=== PATIENT | male | born 1965 | race Caucasian/White ===

== ENCOUNTER 2016-08-01 22:13 | Emergency (ER) | payer MEDICAID ==
[~2016-08-01] VITALS: Ht 180.3 cm; Wt 117.5 kg
[~2016-08-01 22:13] MED LIST: AMLO5TAB2 PO; ASPI-875 PO; ATOR80TA2 PO; BTR10SP2 NS; DIVA500T15 PO; HCT25T PO; LISI40TA PO; LNS30CCR; METO100T PO; ONDA8TAB6 PO; ORPH100T PO; POTA10IV PO; SUMA100T2 PO; TML.25OP OU; TRAV0.004S OU; VERA120T PO; [UNRECOGNIZED DRUG - CODE] PO
[2016-08-01] MEDS ORDERED: DOXA4TAB2 PO (22:48)
[2016-08-01] MEDS ORDERED: BENZ200C51 PO (22:48)
[2016-08-01] MEDS ORDERED: RANI150T11 PO (22:48)
[2016-08-01] MEDS ORDERED: POTA10CA43 PO (22:48)
[2016-08-01] MEDS ORDERED: MONT10TA24 PO (22:48)
[2016-08-01] MEDS ORDERED: TOPI50TA13 PO (22:48)
[2016-08-01] MEDS ORDERED: CODE1CAP20 PO (22:48)
[2016-08-01] MEDS ORDERED: OMEP40CA36 PO (22:48)
[2016-08-01] MEDS ORDERED: TOPI100T11 PO (22:48)
[2016-08-01] MEDS ORDERED: POLY255P PO (22:48)
[2016-08-01] MEDS ORDERED: PROM25TA14 PO (22:48)
[2016-08-01] MEDS ORDERED: LEVO50TA6 PO (22:48)
[2016-08-01 22:59] LABS: BASOPHILS % (AUTO) 0 % (0-10); EOSINOPHILS % (AUTO) 1 % (0-10); LYMPHOCYTES # (AUTO) 1.2 X 10^3 (1.0-4.0); LYMPHOCYTES % (AUTO) 33 % (12-44); MEAN CORPUSCULAR HEMOGLOBIN 31 PG (25-34); MEAN CORPUSCULAR HGB CONC 35 G/DL (32-36); MEAN CORPUSCULAR VOLUME 89 FL (80-99); MEAN PLATELET VOLUME 10.3 FL (7.4-10.4); MONOCYTES # (AUTO) 0.3 X 10^3 (0.0-1.0); MONOCYTES % (AUTO) 9 % (0-12); NEUTROPHILS % (AUTO) 57 % (42-75); PLATELET COUNT 191 10^3/uL (130-400); RED BLOOD COUNT 4.81 10^6/uL (4.35-5.85); RED CELL DISTRIBUTION WIDTH 12.7 % (10.0-14.5); WHITE BLOOD COUNT 3.5 10^3/uL (4.3-11.0)
[2016-08-01 23:19] LABS: ALANINE AMINOTRANSFERASE 16 U/L (0-55); ALBUMIN 4.3 G/DL (3.2-4.5); ANION GAP 10 MMOL/L (5-14); ASPARTATE AMINO TRANSFERASE 15 U/L (5-34); BILIRUBIN,TOTAL 0.3 MG/DL (0.1-1.0); BLOOD UREA NITROGEN 20 MG/DL (7-18); BUN/CREATININE RATIO 19; CALCIUM 9.1 MG/DL (8.5-10.1); CARBON DIOXIDE 20 MMOL/L (21-32); CHLORIDE 114 MMOL/L (98-107); CREATININE SERUM 1.06 MG/DL (0.60-1.30); GFR ESTIMATED > 60; GLUCOSE 113 MG/DL (70-105); LIPASE 46 U/L (8-78); POTASSIUM 3.7 MMOL/L (3.6-5.0); SODIUM 144 MMOL/L (135-145); TOTAL PROTEIN 7.1 G/DL (6.4-8.2)
[2016-08-01 23:33] LABS: BILIRUBIN,URINE NEGATIVE (NEGATIVE); KETONES,URINE 1+ (NEGATIVE); LEUKOCYTE ESTERASE ,URINE 1+ (NEGATIVE); NITRITE,URINE NEGATIVE (NEGATIVE); PH,URINE 6 (5-9); PROTEIN,URINE 2+ (NEGATIVE); UROBILINOGEN,URINE 4 MG/DL (NORMAL)
[2016-08-01 23:43] LABS: SQUAMOUS EPITHELIAL CELL,UR RARE /HPF; WBC,URINE RARE /HPF
[2016-08-01 23:44] LABS: CALCIUM OXALATE CRYSTALS,UR LARGE /LPF
[2016-08-01] MEDS ORDERED: ONDANSETRON 4 MG/2 ML (SDV) Z0FRAN IVP ONE (23:45)
[2016-08-01] MEDS ORDERED: fentaNYL INJECTION 100 MCG/2 ML AMP IVP ONE (23:45)
[2016-08-01 23:55] LABS: LIPASE 46 U/L (8-78); MAGNESIUM 2.5 MG/DL (1.8-2.4)
[2016-08-02] MEDS ORDERED: IOHEXOL 350 MG/ML 100 ML (OMNIPAQUE 350) VIAL IV ONE (00:45)
[2016-08-02] MEDS ORDERED: NS 100 ML (IVPB) BAG IV ONE (00:45)
[2016-08-02] MEDS ORDERED: KETOROLAC 30 MG/ML VIAL IVP ONE (02:00)
--- NOTE | 2016-08-02 02:30 | ED General ---
General Chief Complaint: Abdominal/GI Problems Stated Complaint: HEADACHE, N/V Nursing Triage Note: states abdominal pain with N/V/D and headache. states has diverticulitis Nursing Sepsis Screen: No Definite Risk Source of Information: Patient Exam Limitations: No Limitations History of Present Illness Time Seen by Provider: 22:36 Initial Comments This 51-year-old man presents to the emergency room with complaints of vomiting , headache, and abdominal pain that started yesterday. He had diarrhea 2-3 days ago which resolved. He has had some blood in his stools for a couple of days which he presumes is related to his hemorrhoids. He denies any fever but has had some chills. Last bowel movement was today and was normal. He has a history of diverticulitis. He has had colostomy and reversal 2 due to diverticulitis. He currently sees the [facility] in [place]. After workup for abdominal pain was nearly complete, he mentioned intermittent chest pain over the past week. Review of his chart notes a normal cardiac catheterization in 2007 and a negative stress test one year ago. Allergies and Home Medications Allergies Coded Allergies: acetaminophen (Verified Allergy, Unknown, 06/12/08) codeine (Verified Allergy, Unknown, 06/12/08) oxycodone (Verified Allergy, Unknown, 06/12/08) phenytoin (Verified Allergy, Unknown, 06/12/08) tramadol (Verified Allergy, Unknown, 08/01/16) Home Medications Aspirin 81 Mg Tablet.dr 81 MG PO DAILY (Reported) Atorvastatin Calcium 80 Mg Tablet 80 MG PO HS (Reported) Benzonatate 200 Mg Capsule 200 MG PO TID (Reported) Butalbit/Acetamin/Caff/Codeine 1 Each Capsule #20 1 CAP PO UD (Reported) Butorphanol Tartrate 10 Mg/Ml Can #1 1 SPRAY NS nasal spray (Reported) Divalproex Sodium 500 Mg Tab.sr.24h #2 1 EACH PO Q12H (Reported) Doxazosin Mesylate 4 Mg Tablet #60 1 TAB PO UD (Reported) Levothyroxine Sodium 50 Mcg Tablet #30 1 TAB PO UD (Reported) Lisinopril 40 Mg Tablet 40 MG PO DAILY (Reported) Metoprolol Tartrate 100 Mg Tablet 100 MG PO BID (Reported) Montelukast Sodium 10 Mg Tablet #30 1 TAB PO UD (Reported) Omeprazole 40 Mg Capsule.dr #30 1 CAP PO UD (Reported) Ondansetron Hcl 8 Mg Tablet 8 MG PO PRN (Reported) Polyethylene Glycol 3350 255 Gm Powder #527 1 CAP PO UD (Reported) Potassium Chloride 10 Meq Capsule.er #30 1 CAP PO UD (Reported) Promethazine HCl 25 Mg Tablet #20 1 TAB PO UD (Reported) Ranitidine HCl 150 Mg Tablet #30 1 TAB PO UD (Reported) Sumatriptan Succinate 100 Mg Tablet #1 0 PO PRN (Reported) 1 TAB AT ONSET OF MILLER; MAY REPEAT X 1 IN 2 HOURS Timolol 15 Ml Drops 15 ML OU HS (Reported) Topiramate 50 Mg Tablet #60 1 TAB PO UD (Reported) Topiramate 100 Mg Tablet #60 1 TAB PO UD (Reported) Travoprost 2.5 Ml Drops 0 OU HS (Reported) 1 DROP Constitutional: no symptoms reported EENTM: no symptoms reported Respiratory: no symptoms reported Cardiovascular: see HPI Gastrointestinal: see HPI Genitourinary: no symptoms reported Musculoskeletal: no symptoms reported Skin: no symptoms reported Psychiatric/Neurological: See HPI Hematologic/Lymphatic: No Symptoms Reported Past Bkwzawa-Gdqocl-Sfrtxn Hx Patient Social History Alcohol Use: Rarely Uses Recreational Drug Use: No Smoking Status: Current Someday Smoker Type Used: Cigarettes Recent Foreign Travel: No Contact w/Someone Who Travel: No Recent Infectious Disease Expo: No Recent Hopitalizations: No Physical Abuse Screen: No Sexual Abuse: No Immunizations Up To Date Date of Pneumonia Vaccine: Jan 23, 2012 Seasonal Allergies Seasonal Allergies: No Surgeries HX Surgeries: Yes (arm) Surgeries: Abdominal (colostomy and reversal 2, hernia), Gallbladder, Orthopedic (shoulder, thumb) Respiratory Hx Respiratory Disorders: No Cardiovascular Hx Cardiac Disorders: Yes Cardiac Disorders: Hypertension Neurological Hx Neurological Disorders: Yes Neurological Disorders: Headaches /Migraines Reproductive System Hx Reproductive Disorders: No Genitourinary Hx Genitourinary Disorders: No Gastrointestinal Hx Gastrointestinal Disorders: Yes (TRUJILLO) Gastrointestinal Disorders: Diverticulosis Musculoskeletal Hx Musculoskeletal Disorders: Yes Musculoskeletal Disorders: Arthritis Endocrine Hx Endocrine Disorders: Yes Endocrine Disorders: Hypothyroidsim HEENT HX ENT Disorders: No Cancer Hx Cancer: No Psychosocial Hx Psychiatric Problems: No Integumentary HX Skin/Integumentary Disorder: No Blood Transfusions Hx Blood Disorders: No Physical Exam Vital Signs Vital Sign - Last 12Hours 08/01/16 22:26 Temp 98.1 Pulse 105 Resp 20 B/P 205/120 Pulse Ox 100 O2 Delivery Room Air Capillary Refill : Less Than 3 Seconds General Appearance: No Apparent Distress WD/WN HEENT: PERRL/EOMI Normal ENT Inspection Pharynx Normal Neck: Normal Inspection Respiratory: Lungs Clear Normal Breath Sounds No Accessory Muscle Use No Respiratory Distress Cardiovascular: Regular Rate, Rhythm No Edema No Murmur Gastrointestinal: Normal Bowel Sounds Soft Tenderness Extremity: Normal Inspection Non Tender No Calf Tenderness No Pedal Edema Other (negative Jia) Neurologic/Psychiatric: Alert Oriented x3 No Motor/Sensory Deficits Normal 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 Norm as Tested Skin: Normal Color Warm/Dry Progress/Results/Core Measures Results/Orders Lab Results Laboratory Tests Test 08/01/16 22:50 08/01/16 23:27 Range/Units Alanine Aminotransferase (ALT/SGPT) 16 0-55 U/L Albumin 4.3 3.2-4.5 G/DL Alkaline Phosphatase 76 40-136 U/L Anion Gap 10 5-14 MMOL/L Aspartate Amino Transf (AST/SGOT) 15 5-34 U/L BUN/Creatinine Ratio 19 Basophils # (Auto) 0.0 0.0-0.1 10^3/uL Basophils (%) (Auto) 0 0-10 % Blood Urea Nitrogen 20 H 7-18 MG/DL Calcium Level 9.1 8.5-10.1 MG/DL Carbon Dioxide Level 20 L 21-32 MMOL/L Chloride Level 114 H 98-107 MMOL/L Creatinine 1.06 0.60-1.30 MG/DL Eosinophils # (Auto) 0.0 0.0-0.3 10^3/uL Eosinophils (%) (Auto) 1 0-10 % Estimat Glomerular Filtration Rate > 60 Glucose Level 113 H 70-105 MG/DL Hematocrit 43 40-54 % Hemoglobin 15.0 13.3-17.7 G/DL Lipase 46 8-78 U/L Lymphocytes # (Auto) 1.2 1.0-4.0 X 10^3 Lymphocytes (%) (Auto) 33 12-44 % Magnesium Level 2.5 H 1.8-2.4 MG/DL Mean Corpuscular Hemoglobin 31 25-34 PG Mean Corpuscular Hemoglobin Concent 35 32-36 G/DL Mean Corpuscular Volume 89 80-99 FL Mean Platelet Volume 10.3 7.4-10.4 FL Monocytes # (Auto) 0.3 0.0-1.0 X 10^3 Monocytes (%) (Auto) 9 0-12 % Neutrophils # (Auto) 2.0 1.8-7.8 X 10^3 Neutrophils (%) (Auto) 57 42-75 % Platelet Count 191 130-400 10^3/uL Potassium Level 3.7 3.6-5.0 MMOL/L Red Blood Count 4.81 4.35-5.85 10^6/uL Red Cell Distribution Width 12.7 10.0-14.5 % Sodium Level 144 135-145 MMOL/L Total Bilirubin 0.3 0.1-1.0 MG/DL Total Protein 7.1 6.4-8.2 G/DL Troponin I < 0.30 <0.30 NG/ML White Blood Count 3.5 L 4.3-11.0 10^3/uL Urine Bacteria NEGATIVE /HPF Urine Bilirubin NEGATIVE NEGATIVE Urine Calcium Oxalate Crystals LARGE H /LPF Urine Casts NONE /LPF Urine Clarity SLIGHTLY CLOUDY Urine Color YELLOW Urine Crystals PRESENT H /LPF Urine Culture Indicated NO Urine Glucose (UA) NEGATIVE NEGATIVE Urine Ketones 1+ H NEGATIVE Urine Leukocyte Esterase 1+ H NEGATIVE Urine Mucus LARGE H /LPF Urine Nitrite NEGATIVE NEGATIVE Urine Protein 2+ H NEGATIVE Urine RBC NONE /HPF Urine RBC (Auto) NEGATIVE NEGATIVE Urine Specific [place] 1.020 1.016-1.022 Urine Squamous Epithelial Cells RARE /HPF Urine Urobilinogen 4 H NORMAL MG/DL Urine WBC RARE /HPF Urine pH 6 5-9 My Orders Orders-BRANDY LINO MD Cbc With Automated Diff (08/01/16 22:36) Comprehensive Metabolic Panel (08/01/16 22:36) Lipase (08/01/16 22:36) Ua Culture If Indicated (08/01/16 22:36) Saline Lock/Iv-Start (08/01/16 22:36) Chest Pa/Lat (2 View) (08/01/16 23:35) Magnesium (08/01/16 23:35) Ekg Tracing (08/01/16 23:35) Cardiac Profile 1 (08/01/16 23:35) Monitor-Rhythm Ecg Trace Only (08/01/16 23:35) Lipase (08/01/16 23:35) Ondansetron Injection (Zofran Injectio (08/01/16 23:45) Fentanyl Injection (Sublimaze Injection (08/01/16 23:45) Ct Abdomen/Pelvis W (08/02/16 00:29) Iohexol Injection (Omnipaque 350 Mg/Ml 1 (08/02/16 00:45) Ns (Ivpb) (Sodium Chloride 0.9% Ivpb Bag (08/02/16 00:45) Ketorolac Injection (Toradol Injection) (08/02/16 02:00) Hyoscyamine Sl Tablet (Levsin Sl Tablet) (08/02/16 02:45) Fentanyl Injection (Sublimaze Injection (08/02/16 02:45) Ns W/Kcl 20 Meq/L (Ns Iv W/Kcl 20 Meq/L) (08/02/16 02:45) Promethazine Injection (Phenergan Injec (08/02/16 03:00) Medications Given in ED Current Medications Medications Dose Ordered Sig/Marge Route Start Time Stop Time Status Last Admin Dose Admin Fentanyl Citrate 50 mcg ONCE ONCE IVP 08/01/16 23:45 08/01/16 23:46 DC 08/01/16 23:47 50 MCG Hyoscyamine Sulfate 0.25 mg ONCE ONCE PO 08/02/16 02:45 08/02/16 02:46 DC 08/02/16 02:43 0.25 MG Iohexol 100 ml ONCE ONCE IV 08/02/16 00:45 08/02/16 00:46 DC 08/02/16 00:41 100 ML Ketorolac Tromethamine 30 mg ONCE ONCE IVP 08/02/16 02:00 08/02/16 02:02 DC 08/02/16 02:02 30 MG Ondansetron HCl 8 mg ONCE ONCE IVP 08/01/16 23:45 08/01/16 23:46 DC 08/01/16 23:46 8 MG Promethazine HCl 25 mg ONCE ONCE IVP 08/02/16 03:00 08/02/16 03:01 DC 08/02/16 02:51 25 MG Sodium Chloride 80 ml ONCE ONCE IV 08/02/16 00:45 08/02/16 00:46 DC 08/02/16 00:41 80 ML Vital Signs/I&O Vital Sign - Last 12Hours 08/01/16 08/02/16 22:26 03:29 Temp 98.1 98.7 Pulse 105 61 Resp 20 20 B/P 205/120 Pulse Ox 100 97 O2 Delivery Room Air Room Air Blood Pressure Mean: 148 Progress Note : Progress Note Workup for the abdominal pain was nearly complete when patient mentioned that he had chest pain as well. EKG and troponin were added. Case was eventually reviewed with Dr. Calero who states patient actually has been in the office numerous times for chest pain. Last stress test was about one year ago and was negative. He is comfortable with dismissal if patient is cleared from the abdominal pain. Patient required the addition of Levsin and Phenergan to his treatment regimen. Toradol was added for pain. However, he was eventually able to be dismissed home and was tolerating oral water prior to dismissal. ECG Initial ECG Impression Date: Aug 01, 2016 Initial ECG Impression Time: 23:46 Initial ECG Rate: 77 Initial ECG Rhythm: Normal Sinus Comment Normal sinus rhythm with no ST elevation or depression. No abnormal intervals or axis deviation. No acute change from prior. Diagnostic Imaging Diagonstic Imaging: CT Plain Films/CT/US/NM/MRI: abdomen, pelvis Comments CT abdomen and pelvis with contrast viewed by me and stat rad report reviewed. Cholecystectomy noted. Bilateral lita-nephric stranding with right renal hypodensity which likely represent cysts. Small bowel anastomosis and sigmoid colon resection noted. Multiple ventral hernias with fat-containing left abdominal wall hernia likely from previous colostomy. Departure Impression Impression: Primary Impression: Atypical chest pain Additional Impressions: Nausea vomiting and diarrhea Generalized abdominal pain Acute headache Qualified Code: R51 - Headache Disposition: 01 HOME, SELF-CARE Condition: Improved Departure-Patient Inst. Decision time for Depature: 02:15 Referrals: KHANG LONG DO (PCP/Family) Primary Care Physician Patient Instructions: Chest Pain That Is Not Caused by the Heart (DC), Acute Abdomen (Belly Pain), Adult (DC) Add. Discharge Instructions: Drink plenty of clear liquids. Use your Phenergan and Zofran as previously prescribed. You may use ibuprofen for pain. Return to care or follow up with your primary care provider if symptoms worsen or you are not improving. All discharge instructions reviewed with patient and/or family. Voiced understanding. BRANDY LINO MD Aug 02, 2016 02:30
[2016-08-02] MEDS ORDERED: HYOSCYAMINE 0.125 MG (LEVSIN) TAB PO ONE (02:45)
[2016-08-02] MEDS ORDERED: NS W/KCL 20 MEQ/L 1,000 ML IV ONE (02:45)
[2016-08-02] MEDS ORDERED: fentaNYL INJECTION 100 MCG/2 ML AMP IVP ONE (02:45)
[2016-08-02] MEDS ORDERED: PROMETHAZINE INJ 25 MG/ML (PHENERGAN) AMP IVP ONE (03:00)
[2016-08-02 03:29] VITALS: BP 142/99
--- NOTE | 2016-08-02 06:45 | Diagnostic Imaging Report ---
PROCEDURE: CT abdomen and pelvis with contrast. TECHNIQUE: Multiple contiguous axial images were obtained through the abdomen and pelvis after administration of intravenous contrast. INDICATION: Headache, nausea, and vomiting. FINDINGS: The lung bases are clear. Within the extreme dome of the liver is a slightly curvilinear rounded area of attenuation. This finding is nonspecific but likely of no significance. Liver otherwise unremarkable. Cholecystectomy clips. Granuloma in the spleen. Pancreas and adrenal glands are unremarkable. Abdominal aorta normal in contour. Bilateral perinephric stranding is present. Right renal hypodense lesion incompletely characterized and may reflect a cyst. No hydronephrosis. Surgical changes of the anterior abdominal wall are noted. Multiple ventral hernias fat-containing left abdominal wall hernia likely from prior colostomy is noted. Scattered areas of surgical anastomosis of the gastrointestinal tract, including small bowel and sigmoid colon resection. Mild severity fecal retention. No evidence for obstruction or inflammation. No significant abdominal ascites or free air. In the pelvis, urinary bladder is unremarkable. Prostate gland relatively unremarkable. IMPRESSION:. Negative for acute abnormality about the abdomen and/or pelvis. Additional incidental findings as above. Dictated by: Dictated on workstation # [id number]
--- NOTE | 2016-08-02 08:20 | Diagnostic Imaging Report ---
INDICATION: Head pain, nausea and vomiting. FINDINGS: The lungs are clear. The heart and vessels are normal. There is no effusion or pneumothorax. IMPRESSION: Negative. Dictated by: Dictated on workstation # [id number]
== END 2016-08-02 03:28 | disposition home or self-care (01) ==
LOC: EDUNIT# 22:13 → ER 22:14
DX: R07.89 Other chest pain (principal); R11.2 Nausea with vomiting, unspecified; R10.84 Generalized abdominal pain; R51 Headache; F17.210 Nicotine dependence, cigarettes, uncomplicated; Z79.82 Long term (current) use of aspirin; Z79.899 Other long term (current) drug therapy; Z90.49 Acquired absence of other specified parts of digestive tract; Z98.0 Intestinal bypass and anastomosis status
CPT/HCPCS: 36415; 71020; 74177; 80053; 81000; 83690; 83735; 84484; 85025; 93005; 93041; 96374; 96375

== ENCOUNTER 2016-12-28 19:58 | Outpatient (CLI) | payer MEDICAID ==
[~2016-12-28 19:58] MED LIST changes: +BENZ200C51 PO; +CODE1CAP20 PO; +DOXA4TAB2 PO; +LEVO50TA6 PO; +MONT10TA24 PO; +OMEP40CA36 PO; +POLY255P PO; +POTA10CA43 PO; +PROM25TA14 PO; +RANI150T11 PO; +TOPI100T11 PO; +TOPI50TA13 PO
== END 2016-12-29 06:20 | disposition home or self-care (01) ==
LOC: SLEEP 19:58
PROVIDERS: ATTEND Nurse Practitioner Family
DX: G47.33 Obstructive sleep apnea (adult) (pediatric) (principal)
CPT/HCPCS: 95811

== ENCOUNTER 2017-08-20 19:27 | Emergency (ER) | payer MEDICAID ==
[~2017-08-20] VITALS: Ht 180.3 cm; Wt 117.5 kg
--- OUTSIDE RECORDS SUMMARY | 2017-08-20 19:32 | XMS REPORT | Continuity of Care Document ---
Author Author [facility] Organization [facility] Address Unknown Phone Unavailable Allergies Active Description Code Type Severity Reaction Onset Reported/Identified Relationship to Patient Clinical Status Yes acetaminophen [id number] Drug Allergy Unknown N/A 06/12/2008 Yes codeine [id number] Drug Allergy Unknown N/A 06/12/2008 Yes oxycodone [id number] Drug Allergy Unknown N/A 06/12/2008 Yes phenytoin [id number] Drug Allergy Unknown N/A 06/12/2008 Yes tramadol [id number] Drug Allergy Unknown N/A 08/01/2016 Medications There is no data. Problems Date Dx Coded Attending Type Code Diagnosis Diagnosed By 01/30/2014 LEENA VALENCIA MD Ot 327.23 OBSTRUCTIVE SLEEP APNEA (ADULT) (PEDIATR 01/30/2014 LEENA VALENCIA MD Ot 427.2 PAROX TACHYCARDIA NOS 01/22/2015 BAIMA, THERESA L BLOW OFF WORKER Ot 272.4 01/22/2015 BAIMA, THERESA L BLOW OFF WORKER Ot 401.9 01/22/2015 BAIMA, THERESA L BLOW OFF WORKER Ot 447.9 01/22/2015 BAIMA, THERESA L BLOW OFF WORKER Ot 780.57 01/22/2015 BAIMA, THERESA L BLOW OFF WORKER Ot 785.1 01/22/2015 BAIMA, THERESA L BLOW OFF WORKER Ot 272.4 01/22/2015 BAIMA, THERESA L BLOW OFF WORKER Ot 397.0 01/22/2015 BAIMA, THERESA L BLOW OFF WORKER Ot 401.9 01/22/2015 BAIMA, THERESA L BLOW OFF WORKER Ot 424.0 01/22/2015 BAIMA, THERESA L BLOW OFF WORKER Ot 780.57 01/22/2015 BAIMA, THERESA L BLOW OFF WORKER Ot 785.1 01/22/2015 BAIMA, THERESA L BLOW OFF WORKER Ot 401.9 02/05/2015 JOJO CROUCH APRN Ot 278.00 02/05/2015 JOJO CROUCH APRN Ot 300.00 02/05/2015 JOJO CROUCH E ANALYSIS INTERN Ot 780.57 02/05/2015 JOJO CROUCH E ANALYSIS INTERN Ot 780.79 02/05/2015 JOJO CROUCH E ANALYSIS INTERN Ot 786.09 02/12/2015 JOJO CROUCH E ANALYSIS INTERN Ot 285.9 02/12/2015 JOJO CROUCH ANALYSIS INTERN Ot 792.1 08/08/2015 BAIMA, THERESA L BLOW OFF WORKER Ot 272.4 08/08/2015 BAIMA, THERESA L BLOW OFF WORKER Ot 401.9 08/08/2015 BAIMA, THERESA L BLOW OFF WORKER Ot 447.9 08/08/2015 BAIMA, THERESA L BLOW OFF WORKER Ot 780.57 08/08/2015 BAIMA, THERESA L BLOW OFF WORKER Ot 785.1 08/08/2015 BAIMA, THERESA L BLOW OFF WORKER Ot 272.4 08/08/2015 BAIMA, THERESA L BLOW OFF WORKER Ot 397.0 08/08/2015 BAIMA, THERESA L BLOW OFF WORKER Ot 401.9 08/08/2015 BAIMA, THERESA L BLOW OFF WORKER Ot 424.0 08/08/2015 BAIMA, THERESA L BLOW OFF WORKER Ot 780.57 08/08/2015 BAIMA, THERESA L BLOW OFF WORKER Ot 785.1 08/08/2015 BAIMA, THERESA L BLOW OFF WORKER Ot 401.9 08/08/2015 JOJO CROUCH E ANALYSIS INTERN Ot 278.00 08/08/2015 JOJO CROUCH ANALYSIS INTERN Ot 300.00 08/08/2015 JOJO CROUCH E ANALYSIS INTERN Ot 780.57 08/08/2015 JOJO CROUCH E ANALYSIS INTERN Ot 780.79 08/08/2015 JOJO CROUCH ANALYSIS INTERN Ot 786.09 08/08/2015 JOJO CROUCH ANALYSIS INTERN Ot 285.9 08/08/2015 JOJO CROUCH E ANALYSIS INTERN Ot 792.1 08/22/2015 BAIMA, THERESA L BLOW OFF WORKER Ot E78.5 08/22/2015 BAIMA, THERESA L BLOW OFF WORKER Ot I77.9 08/22/2015 BAIMA, THERESA L BLOW OFF WORKER Ot R07.9 08/01/2016 BAIMA, THERESA L BLOW OFF WORKER Ot 272.4 HYPERLIPIDEMIA NEC/NOS 08/01/2016 BAIMA, THERESA L BLOW OFF WORKER Ot 401.9 HYPERTENSION NOS 08/01/2016 ELIZA THERESA L BLOW OFF WORKER Ot 447.9 ARTERIAL DISEASE NOS 08/01/2016 BAICLARA THERESA L BLOW OFF WORKER Ot 780.57 UNSPECIFIED SLEEP APNEA 08/01/2016 BAICLARA THERESA L BLOW OFF WORKER Ot 785.1 PALPITATIONS 08/01/2016 ELIZA THERESA L BLOW OFF WORKER Ot 272.4 HYPERLIPIDEMIA NEC/NOS 08/01/2016 BAICLARA THERESA L BLOW OFF WORKER Ot 397.0 TRICUSPID VALVE DISEASE 08/01/2016 BAICLARA THERESA L BLOW OFF WORKER Ot 401.9 HYPERTENSION NOS 08/01/2016 BAICLARA, THERESA L BLOW OFF WORKER Ot 424.0 MITRAL VALVE DISORDER 08/01/2016 BAICLARA, THERESA L BLOW OFF WORKER Ot 780.57 UNSPECIFIED SLEEP APNEA 08/01/2016 ELIZA, THERESA L BLOW OFF WORKER Ot 785.1 PALPITATIONS 08/01/2016 ELIZA THERESA L BLOW OFF WORKER Ot 401.9 HYPERTENSION NOS 08/01/2016 JOJO CROUCH ANALYSIS INTERN Ot 278.00 OBESITY, NOS 08/01/2016 JOJO CROUCH E ANALYSIS INTERN Ot 300.00 ANXIETY STATE NOS 08/01/2016 JOJO CROUCH ANALYSIS INTERN Ot 780.57 UNSPECIFIED SLEEP APNEA 08/01/2016 JOJO CROUCH ANALYSIS INTERN Ot 780.79 OTH MALAISE FATIGUE 08/01/2016 JOJO CROUCH ANALYSIS INTERN Ot 786.09 RESPIRATORY ABNORM NEC 08/01/2016 JOJO CROUCH E ANALYSIS INTERN Ot 285.9 ANEMIA NOS 08/01/2016 JOJO CROUCH ANALYSIS INTERN Ot 792.1 ABN FIND-STOOL CONTENTS 08/01/2016 EDYTHERESA ELIZABETH L BLOW OFF WORKER Ot E78.5 HYPERLIPIDEMIA, UNSPECIFIED 08/01/2016 EDYTHERESA ELIZABETH L BLOW OFF WORKER Ot I77.9 DISORDER OF ARTERIES AND ARTERIOLES, UNS 08/01/2016 ELIZA THERESA L BLOW OFF WORKER Ot R07.9 CHEST PAIN, UNSPECIFIED 08/02/2016 HOLLAND MUÑIZ, BRANDY Shepherd Ot F17.210 NICOTINE DEPENDENCE, CIGARETTES, UNCOMPL 08/02/2016 HOLLAND MUÑIZ, BRANDY Shepherd Ot R07.89 OTHER CHEST PAIN 08/02/2016 HOLLAND MUÑIZ, BRANDY Shepherd Ot R10.84 GENERALIZED ABDOMINAL PAIN 08/02/2016 BRANDY LINO MD T Ot R11.2 NAUSEA WITH VOMITING, UNSPECIFIED 08/02/2016 BRANDY LINO MD T Ot R51 HEADACHE 08/02/2016 BRANDY LINO MD T Ot Z79.82 HUMAN RESOURCES SUPPORT SPECIALIST (CURRENT) USE OF ASPIRIN 08/02/2016 BRANDY LINO MD T Ot Z79.899 OTHER HUMAN RESOURCES SUPPORT SPECIALIST (CURRENT) DRUG THERAPY 08/02/2016 BRANDY LINO MD T Ot Z90.49 ACQUIRED ABSENCE OF OTHER SPECIFIED PART 08/02/2016 BRANDY LINO MD T Ot Z98.0 INTESTINAL BYPASS AND ANASTOMOSIS STATUS 08/03/2016 BRANDY LINO MD T Ot F17.210 NICOTINE DEPENDENCE, CIGARETTES, UNCOMPL 08/03/2016 BRANDY LINO MD T Ot R07.89 OTHER CHEST PAIN 08/03/2016 BRANDY LINO MD T Ot R10.84 GENERALIZED ABDOMINAL PAIN 08/03/2016 BRANDY LINO MD T Ot R11.2 NAUSEA WITH VOMITING, UNSPECIFIED 08/03/2016 BRANYD LINO MD T Ot R51 HEADACHE 08/03/2016 BRANDY LINO MD T Ot Z79.82 HUMAN RESOURCES SUPPORT SPECIALIST (CURRENT) USE OF ASPIRIN 08/03/2016 BRANDY LINO MD T Ot Z79.899 OTHER HUMAN RESOURCES SUPPORT SPECIALIST (CURRENT) DRUG THERAPY 08/03/2016 BRANDY LINO MD T Ot Z90.49 ACQUIRED ABSENCE OF OTHER SPECIFIED PART 08/03/2016 BRANDY LINO MD T Ot Z98.0 INTESTINAL BYPASS AND ANASTOMOSIS STATUS 08/03/2016 BRANDY LINO MD T Ot F17.210 NICOTINE DEPENDENCE, CIGARETTES, UNCOMPL 08/03/2016 BRANDY LINO MD T Ot R07.89 OTHER CHEST PAIN 08/03/2016 BRANDY LINO MD T Ot R10.84 GENERALIZED ABDOMINAL PAIN 08/03/2016 BRANDY LINO MD T Ot R11.2 NAUSEA WITH VOMITING, UNSPECIFIED 08/03/2016 BRANDY LINO MD T Ot R51 HEADACHE 08/03/2016 BRANDY LINO MD T Ot Z79.82 CORRECTION (CURRENT) USE OF ASPIRIN 08/03/2016 HOLLAND MUÑIZ, BRANDY Shepherd Ot Z79.899 OTHER HUMAN RESOURCES SUPPORT SPECIALIST (CURRENT) DRUG THERAPY 08/03/2016 BRANDY LINO MD, Ot Z90.49 ACQUIRED ABSENCE OF OTHER SPECIFIED PART 08/03/2016 BRANDY LINO MD Ot Z98.0 INTESTINAL BYPASS AND ANASTOMOSIS STATUS 08/03/2016 BAIMA, THERESA L BLOW OFF WORKER Ot 272.4 HYPERLIPIDEMIA NEC/NOS 08/03/2016 BAIMA, THERESA L BLOW OFF WORKER Ot 401.9 HYPERTENSION NOS 08/03/2016 BAIMA, THERESA L BLOW OFF WORKER Ot 447.9 ARTERIAL DISEASE NOS 08/03/2016 BAIMA, THERESA L BLOW OFF WORKER Ot 780.57 UNSPECIFIED SLEEP APNEA 08/03/2016 BAIMA, THERESA L BLOW OFF WORKER Ot 785.1 PALPITATIONS 08/03/2016 BAIMA, THERESA L BLOW OFF WORKER Ot 272.4 HYPERLIPIDEMIA NEC/NOS 08/03/2016 BAIMA, THERESA L BLOW OFF WORKER Ot 397.0 TRICUSPID VALVE DISEASE 08/03/2016 BAIMA, THERESA L BLOW OFF WORKER Ot 401.9 HYPERTENSION NOS 08/03/2016 BAIMA, THERESA L BLOW OFF WORKER Ot 424.0 MITRAL VALVE DISORDER 08/03/2016 BAIMA, THERESA L BLOW OFF WORKER Ot 780.57 UNSPECIFIED SLEEP APNEA 08/03/2016 BAIMA, THERESA L BLOW OFF WORKER Ot 785.1 PALPITATIONS 08/03/2016 BAIMA, THERESA L BLOW OFF WORKER Ot 401.9 HYPERTENSION NOS 08/03/2016 JJOO CROUCH ANALYSIS INTERN Ot 278.00 OBESITY, NOS 08/03/2016 JOJO CROUCH E ANALYSIS INTERN Ot 300.00 ANXIETY STATE NOS 08/03/2016 JOJO CROUCH ANALYSIS INTERN Ot 780.57 UNSPECIFIED SLEEP APNEA 08/03/2016 JOJO CROUCH ANALYSIS INTERN Ot 780.79 OTH MALAISE FATIGUE 08/03/2016 JOJO CROUCH ANALYSIS INTERN Ot 786.09 RESPIRATORY ABNORM NEC 08/03/2016 JOJO CROUCH ANALYSIS INTERN Ot 285.9 ANEMIA NOS 08/03/2016 JOJO CROUCH ANALYSIS INTERN Ot 792.1 ABN FIND-STOOL CONTENTS 08/03/2016 ELIZA THERESA L BLOW OFF WORKER Ot E78.5 HYPERLIPIDEMIA, UNSPECIFIED 08/03/2016 ELIZATHERESA Brennen BLOW OFF WORKER Ot I77.9 DISORDER OF ARTERIES AND ARTERIOLES, UNS 08/03/2016 THERESA KAY Ot R07.9 CHEST PAIN, UNSPECIFIED 08/08/2016 BRANDY LINO MD Ot F17.210 NICOTINE DEPENDENCE, CIGARETTES, UNCOMPL 08/08/2016 BRANDY LINO MD Ot R07.89 OTHER CHEST PAIN 08/08/2016 BRANDY LINO MD Ot R10.84 GENERALIZED ABDOMINAL PAIN 08/08/2016 BRANDY LINO MD, Ot R11.2 NAUSEA WITH VOMITING, UNSPECIFIED 08/08/2016 BRANDY LINO MD, Ot R51 HEADACHE 08/08/2016 BRANDY LINO MD, Ot Z79.82 HUMAN RESOURCES SUPPORT SPECIALIST (CURRENT) USE OF ASPIRIN 08/08/2016 BRANDY LINO MD, Ot Z79.899 OTHER HUMAN RESOURCES SUPPORT SPECIALIST (CURRENT) DRUG THERAPY 08/08/2016 BRANDY LINO MD, Ot Z90.49 ACQUIRED ABSENCE OF OTHER SPECIFIED PART 08/08/2016 BRANDY LINO MD, Ot Z98.0 INTESTINAL BYPASS AND ANASTOMOSIS STATUS 12/29/2016 JOJO CROUCH APRN Ot G47.33 OBSTRUCTIVE SLEEP APNEA (ADULT) (PEDIATR 12/30/2016 JOJO CROUCH APRN Ot G47.33 OBSTRUCTIVE SLEEP APNEA (ADULT) (PEDIATR Procedures There is no data. Results Test Result Range Complete blood count (CBC) with automated white blood cell (WBC) differential - 08/01/16 22:50 Blood leukocytes automated count (number/volume) 3.5 10*3/uL 4.3-11.0 Blood erythrocytes automated count (number/volume) 4.81 10*6/uL 4.35-5.85 Venous blood hemoglobin measurement (mass/volume) 15.0 g/dL 13.3-17.7 Blood hematocrit (volume fraction) 43 % 40-54 Automated erythrocyte mean corpuscular volume 89 [foz_us] 80-99 Automated erythrocyte mean corpuscular hemoglobin (mass per erythrocyte) 31 pg 25-34 Automated erythrocyte mean corpuscular hemoglobin concentration measurement ( mass/volume) 35 g/dL 32-36 Automated erythrocyte distribution width ratio 12.7 % 10.0-14.5 Automated blood platelet count (count/volume) 191 10*3/uL 130-400 Automated blood platelet mean volume measurement 10.3 [foz_us] 7.4-10.4 Automated blood neutrophils/100 leukocytes 57 % 42-75 Automated blood lymphocytes/100 leukocytes 33 % 12-44 Blood monocytes/100 leukocytes 9 % 0-12 Automated blood eosinophils/100 leukocytes 1 % 0-10 Automated blood basophils/100 leukocytes 0 % 0-10 Blood neutrophils automated count (number/volume) 2.0 10*3 1.8-7.8 Blood lymphocytes automated count (number/volume) 1.2 10*3 1.0-4.0 Blood monocytes automated count (number/volume) 0.3 10*3 0.0-1.0 Automated eosinophil count 0.0 10*3/uL 0.0-0.3 Automated blood basophil count (count/volume) 0.0 10*3/uL 0.0-0.1 Comprehensive metabolic panel - 08/01/16 22:50 Serum or plasma sodium measurement (moles/volume) 144 mmol/L 135-145 Serum or plasma potassium measurement (moles/volume) 3.7 mmol/L 3.6-5.0 Serum or plasma chloride measurement (moles/volume) 114 mmol/L 98-107 Carbon dioxide 20 mmol/L 21-32 Serum or plasma anion gap determination (moles/volume) 10 mmol/L 5-14 Serum or plasma urea nitrogen measurement (mass/volume) 20 mg/dL 7-18 Serum or plasma creatinine measurement (mass/volume) 1.06 mg/dL 0.60-1.30 Serum or plasma urea nitrogen/creatinine mass ratio 19 NRG Serum or plasma creatinine measurement with calculation of estimated glomerular filtration rate > NRG Serum or plasma glucose measurement (mass/volume) 113 mg/dL 70-105 Serum or plasma calcium measurement (mass/volume) 9.1 mg/dL 8.5-10.1 Serum or plasma total bilirubin measurement (mass/volume) 0.3 mg/dL 0.1-1.0 Serum or plasma alkaline phosphatase measurement (enzymatic activity/volume) 76 U/L 40-136 Serum or plasma aspartate aminotransferase measurement (enzymatic activity/ volume) 15 U/L 5-34 Serum or plasma alanine aminotransferase measurement (enzymatic activity/volume ) 16 U/L 0-55 Serum or plasma protein measurement (mass/volume) 7.1 g/dL 6.4-8.2 Serum or plasma albumin measurement (mass/volume) 4.3 g/dL 3.2-4.5 Lipase - 08/01/16 22:50 Lipase 46 U/L 8-78 Magnesium - 08/01/16 22:50 Magnesium 2.5 mg/dL 1.8-2.4 Serum or plasma troponin i.cardiac measurement (mass/volume) - 08/01/16 22:50 Serum or plasma troponin i.cardiac measurement (mass/volume) < ng/ mL <0.30 Lipase - 08/01/16 22:50 Lipase 46 U/L 8-78 Complete urinalysis with reflex to culture - 08/01/16 23:27 Urine color determination YELLOW NRG Urine clarity determination SLIGHTLY CLOUDY NRG Urine pH measurement by test strip 6 5-9 Specific gravity of urine by test strip 1.020 1.016- 1.022 Urine protein assay by test strip, semi-quantitative 2+ NEGATIVE Urine glucose detection by automated test strip NEGATIVE NEGATIVE Erythrocytes detection in urine sediment by light microscopy NEGATIVE NEGATIVE Urine ketones detection by automated test strip 1+ NEGATIVE Urine nitrite detection by test strip NEGATIVE NEGATIVE Urine total bilirubin detection by test strip NEGATIVE NEGATIVE Urine urobilinogen measurement by automated test strip (mass/volume) 4 mg/dL NORMAL Urine leukocyte esterase detection by dipstick 1+ NEGATIVE Automated urine sediment erythrocyte count by microscopy (number/high power field) NONE NRG Automated urine sediment leukocyte count by microscopy (number/high power field ) RARE NRG Bacteria detection in urine sediment by light microscopy NEGATIVE NRG Squamous epithelial cells detection in urine sediment by light microscopy RARE NRG Crystals detection in urine sediment by light microscopy PRESENT NRG Casts detection in urine sediment by light microscopy NONE NRG Mucus detection in urine sediment by light microscopy LARGE NRG Complete urinalysis with reflex to culture NO NRG Calcium oxalate crystals detection in urine sediment by light microscopy LARGE NRG Encounters ACCT No. Visit Date/Time Discharge Status Pt. Type Provider Facility Loc./Unit Complaint [id number] 12/28/2016 19:58:00 12/29/2016 06:20:00 DIS Outpatient JOJO CROUCH APRN [facility] SLEEP G47.33 OBSTRUCTIVE SLEEP APNEA [id number] 08/01/2016 22:14:00 08/02/2016 03:28:00 DIS Emergency HOLLAND MUÑIZ, BRANDY Shepherd [facility] ER HEADACHE, N/V [id number] 08/08/2015 08:05:00 08/08/2015 23:59:59 CLS Outpatient BAITHERESA ELIZABETH BLOW OFF WORKER [facility] CARD CHEST PAIN,HLP [id number] 01/22/2015 12:27:00 01/22/2015 23:59:59 CLS Outpatient JOJO CROUCH APRN [facility] SDC ANEMIA [id number] 01/22/2015 11:20:00 01/22/2015 23:59:59 CLS Outpatient JOJO CROUCH APRN [facility] LAB OBESITY,ANXIETY, DYSPNEA,FATIGUE,SLEEP APNEA [id number] 03/02/2014 13:54:00 03/02/2014 23:59:59 CLS Outpatient BAITHERESA ELIZABETH BLOW OFF WORKER [facility] CARD PALPITATION [id number] 02/20/2014 15:11:00 02/20/2014 23:59:59 CLS Outpatient BAITHERESA ELIZABETH L BLOW OFF WORKER [facility] LAB LABILE HYPERTENSON [id number] 01/29/2014 19:46:00 01/30/2014 06:30:00 DIS Outpatient ERIK MUÑIZ, LEENA Borges [facility] SLEEP SHERI [id number] 12/07/2013 13:56:00 12/07/2013 23:59:59 CLS Outpatient BAITHERESA ELIZABETH L BLOW OFF WORKER [facility] LAB PALPITATIONS,LABILE HYPERTENSION [id number] 11/29/2013 20:42:00 11/30/2013 06:40:00 DIS Outpatient [id number] 04/11/2013 07:27:00 04/11/2013 23:59:59 CLS Outpatient [id number] 12/09/2012 20:17:00 12/10/2012 06:30:00 DIS Outpatient
[2017-08-20] MEDS ORDERED: fentaNYL INJECTION 100 MCG/2 ML AMP IVP STA (19:46)
[2017-08-20] MEDS ORDERED: LACTATED RINGERS 1,000 ML IV ONE ×2 (19:46→21:59)
[2017-08-20] MEDS ORDERED: PANTOPRAZOLE 40 MG/10 ML (PROTONIX) VIAL IV STA (19:46)
--- NOTE | 2017-08-20 19:51 | ED Abdominal Pain ---
General Chief Complaint: Abdominal/GI Problems Stated Complaint: VOMITING/STOMACH PAIN Nursing Triage Note: patient reports n/v for a couple days, denies diarrhea Sepsis Screen: No Definite Risk Source of Information: Patient History of Present Illness Date Seen by Provider: Aug 20, 2017 Time Seen by Provider: 19:42 Initial Comments PT ARRIVES VIA POV FROM HOME C/O SEVERE ABDOMINAL PAIN--MOSTLY IN UPPER ABDOMEN --BEGAN YESTERDAY BEGAN HAVING NAUSEA AND VOMITING TONIGHT--HAS VOMITED APPROXIMATELY 5 TIMES AND BEGINS VOMITING SHORTLY AFTER I ENTER ROOM HAD NORMAL BM TODAY NO FEVER NO URINARY SYMPTOMS NO SICK CONTACTS OR SUSPICIOUS FOODS PT HAS HAD DIVERTICULITIS WITH COLON RESECTION AND HAD COLOSTOMY + ILEOSTOMY WITH LATER TAKEDOWN IN 2012. HAD PERFORATION WITH SEPSIS AND ACUTE RENAL FAILURE-NO DIALYSIS HAD EGD WITH GASTRIC POLYPECTOMY 08/12/17 ALL DONE AT [facility] PT STATES HE HAS CHRONIC NECK PAIN AND STATES "THEY ARE GOING TO BURN A NERVE IN MY NECK ON WEDNESDAY" PCP: DR. SHARMA, ROCHELLE Allergies and Home Medications Allergies Coded Allergies: acetaminophen (Verified Allergy, Unknown, 06/12/08) codeine (Verified Allergy, Unknown, 06/12/08) oxycodone (Verified Allergy, Unknown, 06/12/08) phenytoin (Verified Allergy, Unknown, 06/12/08) tramadol (Verified Allergy, Unknown, 08/01/16) Home Medications Aspirin 81 Mg Tablet.dr, 81 MG PO DAILY, (Reported) Atorvastatin Calcium 80 Mg Tablet, 80 MG PO HS, (Reported) Benzonatate 200 Mg Capsule, 200 MG PO TID, (Reported) Butalbit/Acetamin/Caff/Codeine 1 Each Capsule, 1 CAP PO UD, #20 (Reported) Butorphanol Tartrate 10 Mg/Ml Can, 1 SPRAY NS nasal spray, #1 (Reported) Divalproex Sodium 500 Mg Tab.sr.24h, 1 EACH PO Q12H, #2 (Reported) Doxazosin Mesylate 4 Mg Tablet, 1 TAB PO UD, #60 (Reported) Hyoscyamine Sulfate 0.125 Mg Tab.subl, 1-2 TAB SL Q4H, #15 Prescribed by: AMINATA LEDEZMA on 08/20/17 6862 Levothyroxine Sodium 50 Mcg Tablet, 1 TAB PO UD, #30 (Reported) Lisinopril 40 Mg Tablet, 40 MG PO DAILY, (Reported) Metoprolol Tartrate 100 Mg Tablet, 100 MG PO BID, (Reported) Montelukast Sodium 10 Mg Tablet, 1 TAB PO UD, #30 (Reported) Omeprazole 40 Mg Capsule.dr, 1 CAP PO UD, #30 (Reported) Ondansetron 4 Mg Tab.rapdis, 4-8 MG PO Q4H, #15 Prescribed by: AMINATA LEDEZMA on 08/20/17 2322 Ondansetron Hcl 8 Mg Tablet, 8 MG PO PRN, (Reported) Polyethylene Glycol 3350 255 Gm Powder, 1 CAP PO UD, #527 (Reported) Potassium Chloride 10 Meq Capsule.er, 1 CAP PO UD, #30 (Reported) Promethazine HCl 25 Mg Tablet, 1 TAB PO UD, #20 (Reported) Promethazine HCl 25 Mg Supp.rect, 25 MG RC Q4H, #10 Prescribed by: AMINATA LEDEZMA on 08/20/17 2325 Ranitidine HCl 150 Mg Tablet, 1 TAB PO UD, #30 (Reported) Sumatriptan Succinate 100 Mg Tablet, 0 PO PRN, #1 (Reported) 1 TAB AT ONSET OF MILLER; MAY REPEAT X 1 IN 2 HOURS Timolol 15 Ml Drops, 15 ML OU HS, (Reported) Topiramate 50 Mg Tablet, 1 TAB PO UD, #60 (Reported) Topiramate 100 Mg Tablet, 1 TAB PO UD, #60 (Reported) Travoprost 2.5 Ml Drops, 0 OU HS, (Reported) 1 DROP Review of Systems Constitutional: No fever Respiratory: No Symptoms Reported Cardiovascular: No Symptoms Reported Gastrointestinal: See HPI, Abdominal Pain, Nausea, Poor Appetite, Poor Fluid Intake, Vomiting Genitourinary: No Symptoms Reported Musculoskeletal: neck pain (IS TO HAVE "NERVE BURNED" IN NECK ON Wednesday), other (CHRONIC LEFT KNEE PAIN--HAS BEEN GETTING CORTISONE INJECTIONS) Skin: no symptoms reported Psychiatric/Neurological: No Symptoms Reported Endocrine: No Symptoms Reported Hematologic/Lymphatic: No Symptoms Reported Past Axzztkx-Ftjlgk-Odeewl Hx Patient Social History Alcohol Use: Denies Use Number of Drinks Today: AA Alcohol Beverage of Choice: Beer Recreational Drug Use: No Smoking Status: Current Everyday Smoker Type Used: Cigarettes Recent Foreign Travel: No Contact w/Someone Who Travel: No Recent Infectious Disease Expo: No Recent Hopitalizations: No Physical Abuse: No Sexual Abuse: No Immunizations Up To Date Date of Pneumonia Vaccine: Jan 23, 2012 Seasonal Allergies Seasonal Allergies: No Surgeries History of Surgeries: Yes (COLON RESECTION WITH COLOSTOMY + ILEOSTOMY AND LATER TAKE DOWN 2012; HERNIA REPAIR;RIGHT SHOULDER; LEFT ULNAR NERVE; LEFT KNEE SCOPE; EGD WITH GASTRIC POLYPECTOMY 08/12/17; ) Surgeries: Abdominal, Appendectomy, Bowel Surgery, Gallbladder, Orthopedic Respiratory History of Respiratory Disorde: No Cardiovascular History of Cardiac Disorders: Yes Cardiac Disorders: High Cholesterol, Hypertension Neurological History of Neurological Disord: Yes Neurological Disorders: Headaches /Migraines Reproductive System Hx Reproductive Disorders: No Genitourinary History of Genitourinary Disor: No Gastrointestinal History of Gastrointestinal Di: Yes (TRUJILLO' DIVERTICULITIS WITH PERFORATION, SEVERE SEPSIS AND RENAL FAILURE-2012--COLON RESECTION WITH COLOSTOMY + ILEOSTOMY AND LATER TAKEDOWN; APPY; CHOLECYSTECTOMY; HERNIA REPAIR) Gastrointestinal Disorders: Abdominal Hernia, Gastroesophageal Reflux, Liver Disease/Jaundice, Diverticulosis, Gall Bladder Disease Musculoskeletal History of Musculoskeletal Dis: Yes (CHRONIC KNEE PAIN-ESPECIALLY ON LEFT. CHRONIC NECK PAIN ; MULTIPLE ORTHO SURGERIES) Musculoskeletal Disorders: Arthritis, Chronic Back Pain Endocrine History of Endocrine Disorders: Yes Endocrine Disorders: Hypothyroidsim HEENT History of HEENT Disorders: No (MULTIPLE MISSING TEETH/POOR DENTITION) Cancer History of Cancer: No Psychosocial History of Psychiatric Problem: No Suicide Risk Score: 0 Integumentary History of Skin or Integumenta: No Blood Transfusions History of Blood Disorders: No Physical Exam Vital Signs VS - Last 72 Hours, by Label 08/20/17 08/21/17 19:31 00:00 Temp 97.5 Pulse 50 46 Resp 18 18 B/P (MAP) 199/119 (145) 161/96 Pulse Ox 98 97 Capillary Refill : Less Than 3 Seconds General Appearance: other (LOOKS ILL--VOMITING DURING EXAM--VERY FORCEFULLY. SOMEWHAT LETHARGIC) HEENT: other (NO TOP TEETH, MULTIPLE MISSING LOWER TEETH/ POOR DENTITION) Neck: normal inspection Respiratory: normal breath sounds, no respiratory distress, no accessory muscle use Cardiovascular: normal peripheral pulses, regular rate, rhythm, no murmur Gastrointestinal: no organomegaly, no pulsatile mass, abnormal bowel sounds ( DECREASED), distended (SLIGHTLY), No guarding, No rebound, tenderness (DIFFUSE, BUT MOST TENDER IN EPIGASTRIC AREA), hernia (APPEARS TO HAVE MILD HERNIAS OVER PREVIOUS STOMA SITES. 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, no motor/sensory deficits, alert, oriented x 3 Skin: normal color, warm/dry Progress/Results/Core Measures Results/Orders Lab Results Laboratory Tests Test 08/20/17 19:55 08/20/17 22:28 Range/Units White Blood Count 7.6 4.3-11.0 10^3/uL Red Blood Count 4.99 4.35-5.85 10^6/uL Hemoglobin 15.8 13.3-17.7 G/DL Hematocrit 43 40-54 % Mean Corpuscular Volume 85 80-99 FL Mean Corpuscular Hemoglobin 32 25-34 PG Mean Corpuscular Hemoglobin Concent 37 H 32-36 G/DL Red Cell Distribution Width 13.2 10.0-14.5 % Platelet Count 174 130-400 10^3/uL Mean Platelet Volume 10.0 7.4-10.4 FL Neutrophils (%) (Auto) 69 42-75 % Lymphocytes (%) (Auto) 25 12-44 % Monocytes (%) (Auto) 5 0-12 % Eosinophils (%) (Auto) 1 0-10 % Basophils (%) (Auto) 0 0-10 % Neutrophils # (Auto) 5.3 1.8-7.8 X 10^3 Lymphocytes # (Auto) 1.9 1.0-4.0 X 10^3 Monocytes # (Auto) 0.4 0.0-1.0 X 10^3 Eosinophils # (Auto) 0.1 0.0-0.3 10^3/uL Basophils # (Auto) 0.0 0.0-0.1 10^3/uL Prothrombin Time 12.8 12.2-14.7 SEC INR Comment 1.0 0.8-1.4 Activated Partial Thromboplast Time 28 24-35 SEC Sodium Level 143 135-145 MMOL/L Potassium Level 3.9 3.6-5.0 MMOL/L Chloride Level 114 H 98-107 MMOL/L Carbon Dioxide Level 17 L 21-32 MMOL/L Anion Gap 12 5-14 MMOL/L Blood Urea Nitrogen 10 7-18 MG/DL Creatinine 0.85 0.60-1.30 MG/DL Estimat Glomerular Filtration Rate > 60 BUN/Creatinine Ratio 12 Glucose Level 119 H 70-105 MG/DL Calcium Level 9.4 8.5-10.1 MG/DL Total Bilirubin 0.3 0.1-1.0 MG/DL Aspartate Amino Transf (AST/SGOT) 25 5-34 U/L Alanine Aminotransferase (ALT/SGPT) 36 0-55 U/L Alkaline Phosphatase 108 40-136 U/L Total Protein 7.4 6.4-8.2 GM/DL Albumin 4.5 3.2-4.5 GM/DL Amylase Level 79 25-125 U/L Lipase 31 8-78 U/L Urine Color YELLOW Urine Clarity CLEAR Urine pH 7 5-9 Urine Specific [place] 1.015 L 1.016-1.022 Urine Protein 2+ H NEGATIVE Urine Glucose (UA) NEGATIVE NEGATIVE Urine Ketones NEGATIVE NEGATIVE Urine Nitrite NEGATIVE NEGATIVE Urine Bilirubin NEGATIVE NEGATIVE Urine Urobilinogen NORMAL NORMAL MG/DL Urine Leukocyte Esterase NEGATIVE NEGATIVE Urine RBC (Auto) NEGATIVE NEGATIVE Urine RBC NONE /HPF Urine WBC RARE /HPF Urine Crystals NONE /LPF Urine Bacteria NEGATIVE /HPF Urine Casts NONE /LPF Urine Mucus SMALL H /LPF Urine Culture Indicated NO My Orders Orders - AMINATA LEDEZMA DO Saline Lock/Iv-Start (08/20/17 19:46) Monitor-Rhythm Ecg Trace Only (08/20/17 19:46) Amylase (08/20/17 19:46) Cbc With Automated Diff (08/20/17 19:46) Comprehensive Metabolic Panel (08/20/17 19:46) Lipase (08/20/17 19:46) Protime With Inr (08/20/17 19:46) Partial Thromboplastin Time (08/20/17 19:46) Ua Culture If Indicated (08/20/17 19:46) Ct Abdomen/Pelvis Wo (08/20/17 19:46) Acute Abd Series (08/20/17 19:46) Saline Lock/Iv-Start (08/20/17 19:46) Lactated Ringers (Lr 1000 Ml Iv Solution (08/20/17 19:46) Ondansetron Injection (Zofran Injectio (08/20/17 20:00) Fentanyl Injection (Sublimaze Injection (08/20/17 19:46) Pantoprazole Injection (Protonix Injecti (08/20/17 19:46) Scopolamine Patch (Transderm-Scop Patch) (08/20/17 20:30) Promethazine Injection (Phenergan Injec (08/20/17 20:30) Diphenhydramine Injection (Benadryl Inje (08/20/17 20:30) Saline Lock/Iv-Start (08/20/17 21:59) Lactated Ringers (Lr 1000 Ml Iv Solution (08/20/17 21:59) Medications Given in ED Current Medications Medications Dose Ordered Sig/Marge Route Start Time Stop Time Status Last Admin Dose Admin Diphenhydramine HCl 25 mg ONCE ONCE IVP 08/20/17 20:30 08/20/17 20:31 DC 08/20/17 20:32 25 MG Lactated Ringer's 1,000 ml @ 0 mls/hr Q0M ONCE IV 08/20/17 19:46 08/20/17 19:49 DC 08/20/17 20:07 0 MLS/HR Lactated Ringer's 1,000 ml @ 0 mls/hr Q0M ONCE IV 08/20/17 21:59 08/20/17 22:00 DC 08/20/17 22:09 0 MLS/HR Ondansetron HCl 8 mg ONCE ONCE IVP 08/20/17 20:00 08/20/17 20:01 DC 08/20/17 20:08 8 MG Promethazine HCl 50 mg ONCE ONCE IVP 08/20/17 20:30 08/20/17 20:31 DC 08/20/17 20:32 50 MG Scopolamine 1.5 mg ONCE ONCE TD 08/20/17 20:30 08/20/17 20:31 DC 08/20/17 20:31 1.5 MG Vital Signs/I&O Vital Sign - Last 12Hours 08/20/17 08/21/17 19:31 00:00 Temp 97.5 Pulse 50 46 Resp 18 18 B/P (MAP) 199/119 (145) 161/96 Pulse Ox 98 97 Blood Pressure Mean: 145 Progress Note : Progress Note NAUSEA AND PAIN RESOLVED WITH MEDICATIONS--FEELING MUCH BETTER PT TOLERATING ICE CHIPS, WATER, AND PEDIALYTE PRIOR TO DISMISSAL Diagnostic Imaging Comments ACUTE ABDOMEN XRAYS--NO N-SPECIFIC BOWEL GAS PATTERN CT ABDOMEN/PELVIS--INCREASED STRANDING/INFLAMMATORY CHANGES TO SUB Q FAT IN AREAS OF KNOWN HERNIAS AT SITES OF PREVIOUS OSTOMIES--NO BOWEL OBSTRUCTION OR INCARCERATION OF HERNIAS AND THEY DO NOT CONTAIN BOWEL. PER RADIOLOGIST REPORTS @ 2123 Reviewed: Reviewed by Me Departure Communication (Admissions) Progress Notes 2126--SPOKE WITH DR. 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 QUINTANA, HE DOES NOT ADVISE ADMIT. ADVISES SYMPTOMATIC TREATMENT AT THIS POINT. DISCUSSED POSSIBILITY OF INFLAMMATORY CHANGES DUE TO PT 'S SEVERE RETCHING AND IRRITATING THE HERNIAS EACH TIME HE VOMITS. Impression Impression: Primary Impression: Generalized abdominal pain Additional Impressions: Intractable nausea and vomiting Abdominal wall hernia at previous stoma site Gastroenteritis Disposition: HOME, SELF-CARE Condition: Improved Departure-Patient Inst. Referrals: NO,LOCAL PHYSICIAN (PCP/Family) Primary Care Physician Patient Instructions: Acute Abdomen (Belly Pain), Adult (DC), GASTROENTERITIS- 6Y-ADULT, Nausea and Vomiting, Adult (DC) Add. Discharge Instructions: CLEAR LIQUIDS, SIPS AT A TIME--WATER, BROTH, JELLO, GATORADE WHEN NAUSEA IS GONE, ADD BRATS DIET TO CLEAR LIQUIDS--BANANAS, RICE, APPLESAUCE , TOAST, SALTINES FOLLOW UP WITH YOUR DR ON WEDNESDAY FOR FURTHER CARE, RETURN TO ER IF WORSE All discharge instructions reviewed with patient and/or family. Voiced understanding. Scripts Promethazine HCl (Phenergan) 25 Mg Supp.rect 25 MG RC Q4H for Nausea/Vomiting, #10 SUPP.RECT Prov: AMINATA LEDEZMA DO 08/20/17 Hyoscyamine Sulfate (Levsin-Sl) 0.125 Mg Tab.subl 1-2 TAB SL Q4H for Abdominal Pain, #15 TAB Prov: AMINATA LEDEZMA DO 08/20/17 Ondansetron (Zofran Odt) 4 Mg Tab.rapdis 4-8 MG PO Q4H for Nausea/Vomiting, #15 TAB Prov: AMINATA LEDEZMA DO 08/20/17 AMINATA LEDEZMA DO Aug 20, 2017 19:51
[2017-08-20] MEDS ORDERED: ONDANSETRON 4 MG/2 ML (SDV) Z0FRAN IVP ONE (20:00)
[2017-08-20 20:14] LABS: BASOPHILS % (AUTO) 0 % (0-10); EOSINOPHILS # (AUTO) 0.1 10^3/uL (0.0-0.3); EOSINOPHILS % (AUTO) 1 % (0-10); HEMATOCRIT 43 % (40-54); HEMOGLOBIN 15.8 G/DL (13.3-17.7); LYMPHOCYTES # (AUTO) 1.9 X 10^3 (1.0-4.0); LYMPHOCYTES % (AUTO) 25 % (12-44); MEAN CORPUSCULAR HEMOGLOBIN 32 PG (25-34); MEAN CORPUSCULAR HGB CONC 37 G/DL (32-36); MEAN CORPUSCULAR VOLUME 85 FL (80-99); MONOCYTES # (AUTO) 0.4 X 10^3 (0.0-1.0); MONOCYTES % (AUTO) 5 % (0-12); NEUTROPHILS # (AUTO) 5.3 X 10^3 (1.8-7.8); NEUTROPHILS % (AUTO) 69 % (42-75); PLATELET COUNT 174 10^3/uL (130-400); RED BLOOD COUNT 4.99 10^6/uL (4.35-5.85); RED CELL DISTRIBUTION WIDTH 13.2 % (10.0-14.5); WHITE BLOOD COUNT 7.6 10^3/uL (4.3-11.0)
[2017-08-20 20:23] LABS: PROTHROMBIN TIME PATIENT 12.8 SEC (12.2-14.7)
[2017-08-20] MEDS ORDERED: SCOPOLAMINE 1.5 MG (TRANSDERM-SCOP) PATCH TD ONE (20:30)
[2017-08-20] MEDS ORDERED: diphenhydrAMINE 50 MG/ML INJ (BENADRYL) IVP ONE (20:30)
[2017-08-20] MEDS ORDERED: PROMETHAZINE INJ 25 MG/ML (PHENERGAN) AMP IVP ONE (20:30)
[2017-08-20 20:35] LABS: ALANINE AMINOTRANSFERASE 36 U/L (0-55); ALBUMIN 4.5 GM/DL (3.2-4.5); ALKALINE PHOSPHATASE 108 U/L (40-136); AMYLASE 79 U/L (25-125); BILIRUBIN,TOTAL 0.3 MG/DL (0.1-1.0); BUN/CREATININE RATIO 12; CALCIUM 9.4 MG/DL (8.5-10.1); CARBON DIOXIDE 17 MMOL/L (21-32); CHLORIDE 114 MMOL/L (98-107); CREATININE SERUM 0.85 MG/DL (0.60-1.30); GFR ESTIMATED > 60; GLUCOSE 119 MG/DL (70-105); LIPASE 31 U/L (8-78); POTASSIUM 3.9 MMOL/L (3.6-5.0); SODIUM 143 MMOL/L (135-145); TOTAL PROTEIN 7.4 GM/DL (6.4-8.2)
--- NOTE | 2017-08-20 21:16 | Diagnostic Imaging Report ---
PROCEDURE: CT abdomen and pelvis without contrast. TECHNIQUE: Multiple contiguous axial images were obtained through the abdomen and pelvis without the use of intravenous contrast. INDICATION: Nausea and vomiting The previous CT abdomen/pelvis exam of 08/02/2016 failed to show any sign of an acute abnormality of the abdomen or pelvis. The prior exam did note multiple ventral hernias including a hernia in the left lower abdomen in the region of the patient's former ostomy site. On this exam, there does seem to be greater distortion of the subcutaneous fat in this area. There is no clear evidence for obstruction or incarceration of the bowel but the greater distortion of the subcutaneous fat does suggest there is edema/inflammation in this area. There is also somewhat greater distortion of the subcutaneous fat in the midabdomen just to the right of midline. There are several segments of bowel in this area as well but these appear similar to the prior exam. The liver, spleen, pancreas, kidneys, adrenals, aorta and inferior vena cava show no sign of an acute abnormality. The gallbladder is surgically absent. The stomach is filled with fluid and consequently difficult to assess. The postsurgical changes involving the colon seen on the prior study are again evident. There is no pelvic mass or free fluid collection noted. The appendix was not well-visualized but there are no indirect signs of acute appendicitis. The urinary bladder and prostate gland are grossly unremarkable. The bone windows show no sign of a fracture or of a destructive lesion. The lung bases are clear. IMPRESSION: 1. There is greater distortion of the subcutaneous fat in the region of the ventral hernia just to the right of midline and in the left lower quadrant near the former ostomy site. The increased density in this area does suggest edema/inflammation but there is no mass or abscess visualized. There is no incarceration or obstruction of bowel either. 2. There is no acute abnormality of the abdomen or pelvis identified otherwise. Dictated by: Dictated on workstation # [id number]
--- NOTE | 2017-08-20 21:20 | Diagnostic Imaging Report ---
INDICATION: Abdominal pain, nausea and vomiting. EXAMINATION: Acute abdomen series at 9:12 p.m. FINDINGS: The accompanying erect PA chest shows the heart size to be within normal limits and stable when compared to the prior exam of 08/02/2016. The lungs are clear. There is no evidence for a pneumoperitoneum. Supine and erect views of the abdomen were obtained. There is some gas in both the large and small bowel in a nonspecific fashion. There is no evidence for a bowel obstruction. There is no mass or organomegaly appreciated. Surgical sutures are again seen overlying the right mid abdomen and pelvis. These were also present the prior CT abdomen/pelvis exam of 08/02/2016. The calcified injection granuloma along the posterior aspect of the right hip, seen previously, is again evident. The osseous structures are intact. IMPRESSION: The bowel gas pattern is nonspecific. There is no acute abnormality identified. Dictated by: Dictated on workstation # [id number]
[2017-08-20 22:34] LABS: BILIRUBIN,URINE NEGATIVE (NEGATIVE); CLARITY,URINE CLEAR; COLOR,URINE YELLOW; GLUCOSE, URINE (UA) NEGATIVE (NEGATIVE); KETONES,URINE NEGATIVE (NEGATIVE); LEUKOCYTE ESTERASE ,URINE NEGATIVE (NEGATIVE); NITRITE,URINE NEGATIVE (NEGATIVE); PH,URINE 7 (5-9); PROTEIN,URINE 2+ (NEGATIVE); UROBILINOGEN,URINE NORMAL (NORMAL)
[2017-08-20 22:46] LABS: WBC,URINE RARE /HPF
[2017-08-20 22:47] LABS: BACTERIA,URINE NEGATIVE /HPF
[2017-08-20] MEDS ORDERED: ONDA4TAB8 PO (23:22)
[2017-08-20] MEDS ORDERED: HYOS0.1283 SL (23:22)
[2017-08-20] MEDS ORDERED: PROM25SU43 RC (23:25)
[2017-08-21] VITALS: BP 161/96
== END 2017-08-21 00:04 | disposition home or self-care (01) ==
LOC: EDUNIT# 19:27 → ER 19:29
DX: K52.9 Noninfective gastroenteritis and colitis, unspecified (principal); K94.09 Other complications of colostomy; K46.9 Unspecified abdominal hernia without obstruction or gangrene; E78.00 Pure hypercholesterolemia, unspecified; I10 Essential (primary) hypertension; G43.909 Migraine, unspecified, not intractable, without status migrainosus; E03.9 Hypothyroidism, unspecified; F17.210 Nicotine dependence, cigarettes, uncomplicated; Z93.2 Ileostomy status; Z86.010 Personal history of colon polyps; Z88.5 Allergy status to narcotic agent; Z90.49 Acquired absence of other specified parts of digestive tract; Z87.19 Personal history of other diseases of the digestive system; Z98.890 Other specified postprocedural states; Z88.8 Allergy status to other drugs, medicaments and biological substances; Z79.82 Long term (current) use of aspirin
CPT/HCPCS: 36415; 74022; 74176; 80053; 81000; 82150; 83690; 85025; 85610; 85730

== ENCOUNTER → 2017-09-03 | Outpatient (CLI) | payer MEDICAID ==
[~2017-09-03] MED LIST changes: +HYOS0.1283 SL; +ONDA4TAB8 PO; +PROM25SU43 RC
[2017-09-03 09:19] LABS: ALANINE AMINOTRANSFERASE 24 U/L (0-55); ALBUMIN 4.3 GM/DL (3.2-4.5); ALKALINE PHOSPHATASE 83 U/L (40-136); BILIRUBIN,TOTAL 0.5 MG/DL (0.1-1.0); BUN/CREATININE RATIO 14; CALCIUM 9.1 MG/DL (8.5-10.1); CARBON DIOXIDE 17 MMOL/L (21-32); CHLORIDE 115 MMOL/L (98-107); CHOLESTEROL 102 MG/DL (< 200); CREATININE SERUM 0.83 MG/DL (0.60-1.30); GFR ESTIMATED > 60; GLUCOSE 95 MG/DL (70-105); HDL CHOLESTEROL 38 MG/DL (40-60); MAGNESIUM 2.1 MG/DL (1.8-2.4); POTASSIUM 3.9 MMOL/L (3.6-5.0); SODIUM 143 MMOL/L (135-145); TOTAL PROTEIN 6.6 GM/DL (6.4-8.2); TRIGLYCERIDES 93 MG/DL (<150); VLDL CHOLESTEROL 19 MG/DL (5-40)
== END ==
LOC: LAB 08:33
PROVIDERS: ATTEND Internal Medicine Cardiovascular Disease
DX: R07.89 Other chest pain (principal); R94.31 Abnormal electrocardiogram [ECG] [EKG]; I65.29 Occlusion and stenosis of unspecified carotid artery; E78.5 Hyperlipidemia, unspecified; G47.33 Obstructive sleep apnea (adult) (pediatric); R03.0 Elevated blood-pressure reading, without diagnosis of hypertension; E66.09 Other obesity due to excess calories
CPT/HCPCS: 36415; 80053; 80061; 83735; 84443

== ENCOUNTER → 2017-09-14 | Outpatient (CLI) | payer MEDICAID | LOC: CARD 11:47 | PROVIDERS: ATTEND Internal Medicine Cardiovascular Disease | DX: R03.0 Elevated blood-pressure reading, without diagnosis of hypertension (principal); R07.89 Other chest pain; R94.31 Abnormal electrocardiogram [ECG] [EKG]; I65.29 Occlusion and stenosis of unspecified carotid artery; E78.5 Hyperlipidemia, unspecified; G47.33 Obstructive sleep apnea (adult) (pediatric); E66.9 Obesity, unspecified | CPT/HCPCS: 93306; 93923 ==

== ENCOUNTER → 2018-06-17 | Day surgery (SDC) | payer MEDICAID ==
[~2018-06-17] VITALS: Ht 180.3 cm; Wt 110.2 kg
[~2018-06-17] MED LIST changes: +LIDOCAINE 1% INJ 20 ML 20 ML VIAL ONE; -POLY255P PO; +POLY255P16 PO
[2018-06-17 08:37] VITALS: BP 114/86
--- NOTE | 2018-06-17 20:03 | OPERATIVE REPORT ---
DATE OF SERVICE: 06/17/2018 The patient is a 53-year-old man, who has a history of palpitations, infrequent, and also had an episode of bradycardia during a recent operative procedure in [place], [place] (the details of which are not available). Implantable loop recorder implantation was recommended because of infrequent symptoms. Informed consent was obtained. [facility] The left prepectoral area was prepared and draped in the usual sterile fashion. Lidocaine 1% was used for local anesthesia. We used the tools provided with Medtronic Reveal LINQ device to make a small subcutaneous pocket anterior to the left fourth intercostal space in which the device was placed. This is Medtronic Reveal LINQ serial #[id number]. The edges were closed using Dermabond and Steri-Strips. He tolerated the procedure well. Job ID: [id number] DocumentID: [id number] Dictated Date: 06/17/2018 12:43:48 District Or District Office Director Date: 06/17/2018 20:02:53 Dictated By: JANES VALENCIA MD, MA, FACP, FACC,
== END | disposition home or self-care (01) ==
LOC: CATH 08:13
PROVIDERS: ATTEND Internal Medicine Cardiovascular Disease
DX: R00.2 Palpitations (principal); R00.1 Bradycardia, unspecified; R07.89 Other chest pain; I10 Essential (primary) hypertension; E78.5 Hyperlipidemia, unspecified; G47.33 Obstructive sleep apnea (adult) (pediatric); E03.9 Hypothyroidism, unspecified; E66.9 Obesity, unspecified; Z68.33 Body mass index [BMI] 33.0-33.9, adult; Z79.899 Other long term (current) drug therapy
CPT/HCPCS: 33282

== ENCOUNTER → 2018-07-27 | Outpatient (CLI) | payer MEDICAID ==
[~2018-07-27] MED LIST changes: -LIDOCAINE 1% INJ 20 ML 20 ML VIAL ONE; +RT-ALBUTEROL SULF 2.5 MG/3 ML PRE-MIX VIAL INH ONE; +RT-ALBUTEROL SULF 2.5 MG/3 ML PRE-MIX VIAL ONE
== END ==
LOC: RT 09:43
PROVIDERS: ATTEND Nurse Practitioner Family
DX: G47.33 Obstructive sleep apnea (adult) (pediatric) (principal); J30.9 Allergic rhinitis, unspecified; R53.82 Chronic fatigue, unspecified
CPT/HCPCS: 94060; 94726; 94729

== ENCOUNTER → 2018-08-02 | Outpatient (CLI) | payer MEDICAID ==
[~2018-08-02] MED LIST changes: +REGADENOSON 0.4 MG/5 ML SYR (LEXISCAN) IV ONE; -RT-ALBUTEROL SULF 2.5 MG/3 ML PRE-MIX VIAL INH ONE; -RT-ALBUTEROL SULF 2.5 MG/3 ML PRE-MIX VIAL ONE
[2018-08-02] MEDS: CATHETER FLUSH 10 ML SYR IV PRN ×2 (11:25→13:01)
[2018-08-02 12:59] VITALS: BP 177/113
[2018-08-02 13:19] VITALS: BP 164/102
--- NOTE | 2018-08-03 09:15 | STRESS TEST ---
DATE OF SERVICE: 08/02/2018 RESTING AND POST REGADENOSON TECHNETIUM-99M TETROFOSMIN SPECT CT IMAGING ORDERING PHYSICIAN: Tabitha Callahan APRN. PRIMARY PHYSICIAN: Dr. Conor Canseco. CLINICAL DIAGNOSIS: Chest discomfort. Baseline images were carried out after injection of 10.77 mCi of technetium-99m Tetrofosmin. This was followed by 0.4 mm of Regadenoson and 28.8 mCi of technetium-99m Tetrofosmin for stress imaging. The electrocardiogram showed sinus rhythm at baseline. There was nonspecific T-wave abnormality throughout the study; it did not change significantly with the Regadenoson infusion. The patient noted some shortness of breath following the Regadenoson infusion, which resolved in a few minutes. Review of images at rest and following stress indicates somewhat diminished count uptake in the diaphragmatic wall of the left ventricle, both at rest and following a Regadenoson infusion. This is likely due to diaphragmatic attenuation. Gated images show normal global left ventricular systolic function and normal regional wall motion, including the diaphragmatic wall of the left ventricle. Left ventricular ejection fraction is calculated to be 60%. Left ventricular end diastolic volume is 109 mL. TID is absent (1.05). CONCLUSIONS: 1. No evidence of any significant myocardial ischemia or infarction on this study. 2. Normal regional wall motion. 3. Normal global left ventricular systolic function with a calculated ejection fraction of 60%. Job ID: [id number] DocumentID: [id number] Dictated Date: 08/03/2018 08:51:18 Helmet Hat Sweatband Puncher Date: 08/03/2018 09:14:32 Dictated By: JANES VALENCIA MD, MA, FACP, FACC,
== END ==
LOC: CARD 10:00
PROVIDERS: ATTEND Nurse Practitioner Family
DX: R07.9 Chest pain, unspecified (principal)
CPT/HCPCS: 78452; 93017

== ENCOUNTER 2018-11-04 21:07 | Outpatient (CLI) | payer MEDICAID ==
[~2018-11-04 21:07] MED LIST changes: -REGADENOSON 0.4 MG/5 ML SYR (LEXISCAN) IV ONE
== END 2018-11-05 06:15 | disposition home or self-care (01) ==
LOC: SLEEP 21:07
PROVIDERS: ATTEND Nurse Practitioner Family
DX: G47.33 Obstructive sleep apnea (adult) (pediatric) (principal); R06.00 Dyspnea, unspecified; J30.9 Allergic rhinitis, unspecified; R53.82 Chronic fatigue, unspecified
CPT/HCPCS: 95810

== ENCOUNTER 2021-01-07 15:15 | Outpatient (RCR) | payer MEDICAID, OTHER ==
[~2021-01-07 15:15] MED LIST changes: -MONT10TA24 PO; +MONT10TA32 PO; -OMEP40CA36 PO; +OMEP40CA6 PO
== END 2021-02-16 | disposition home or self-care (01) ==
PROVIDERS: ATTEND Internal Medicine Pulmonary Disease
DX: M25.512 Pain in left shoulder (principal)

== ENCOUNTER → 2021-03-06 | Outpatient (CLI) | payer MEDICAID, OTHER | LOC: LABNPT 05:50 | PROVIDERS: ATTEND Nurse Practitioner Family | DX: G47.33 Obstructive sleep apnea (adult) (pediatric) (principal); Z20.822 Contact with and (suspected) exposure to COVID-19 | CPT/HCPCS: 87635 ==

== ENCOUNTER 2021-03-08 20:50 | Outpatient (CLI) | payer MEDICAID, OTHER | END 2021-03-09 07:15 | disposition home or self-care (01) | LOC: SLEEP 20:50 | PROVIDERS: ATTEND Nurse Practitioner Family | DX: G47.33 Obstructive sleep apnea (adult) (pediatric) (principal) | CPT/HCPCS: 95811 ==

== ENCOUNTER → 2021-10-16 | Outpatient (CLI) | payer MEDICAID, OTHER ==
[~2021-10-16] MED LIST changes: +CATHETER FLUSH 10 ML SYR IVP PRN; +MONT-40 PO; -MONT10TA32 PO; +REGADENOSON 0.4 MG/5 ML SYR (LEXISCAN) IV ONE
[2021-10-16 11:17] VITALS: BP 149/87
--- NOTE | 2021-10-16 16:38 | STRESS TEST ---
DATE OF SERVICE: 10/16/2021 RESTING AND POST REGADENOSON TECHNETIUM-99M TETROFOSMIN SPECT CT IMAGING Baseline images were carried out after injection of 10.97 mCi of technetium-99m Tetrofosmin. This was followed by 0.4 mg regadenoson and 32.9 mCi of technetium-99m Tetrofosmin for stress imaging. The electrocardiogram shows atrial fibrillation at baseline. Ventricular rate remained well controlled. The electrocardiogram did not change significantly with regadenoson infusion. He noted mild chest pressure during the study, which resolved in a few minutes after the infusion. Review of images at rest and following stress indicates a small basal inferior perfusion defect that appears transient. There is also diaphragmatic attenuation of the inferior wall, both at rest and following regadenoson infusion. Gated images show normal global left ventricular systolic function with a calculated ejection fraction of 68%. No regional wall motion abnormalities seen. CONCLUSIONS: 1. This study is suggestive of a small amount of basal inferior ischemia. 2. Normal regional wall motion. 3. Normal global left ventricular systolic function with an ejection fraction of 68%. Job ID: [id number] DocumentID: [id number] Dictated Date: 10/16/2021 13:59:17 Performance Test Consultant Date: 10/16/2021 16:38:10 Dictated By: JANES VALENCIA MD, MA, FACP, FACC,
== END ==
LOC: CARD 11:00
PROVIDERS: ATTEND Internal Medicine Cardiovascular Disease
DX: I25.10 Atherosclerotic heart disease of native coronary artery without angina pectoris (principal)
CPT/HCPCS: 78452; 93017; A9502

== ENCOUNTER 2021-12-02 11:02 | Outpatient (CLI) | payer MEDICAID ==
[~2021-12-02] VITALS: Ht 180.3 cm; Wt 142.8 kg
[~2021-12-02 11:02] MED LIST changes: -CATHETER FLUSH 10 ML SYR IVP PRN; -REGADENOSON 0.4 MG/5 ML SYR (LEXISCAN) IV ONE
[2021-12-02] MEDS ORDERED: LIDOCAINE 1% INJ 20 ML VIAL ONE (11:12)
[2021-12-02] MEDS ORDERED: HEParin (CATH LAB) 2,000 ML IV ONE (11:12)
[2021-12-02] MEDS ORDERED: NS IV 1000 ML 1,000 ML ONE (11:12)
[2021-12-02] MEDS ORDERED: NS IV 1000 ML 1,000 ML IV SCH ×2 (11:15→18:00)
[2021-12-02 11:44] VITALS: BP 141/94
[2021-12-02 11:47] LABS: HEMATOCRIT 42 % (40-54); HEMOGLOBIN 13.9 g/dL (13.3-17.7); MEAN CORPUSCULAR HEMOGLOBIN 30 pg (25-34); MEAN CORPUSCULAR HGB CONC 33 g/dL (32-36); MEAN CORPUSCULAR VOLUME 91 fL (80-99); PLATELET COUNT 217 10^3/uL (130-400); WHITE BLOOD COUNT 7.4 10^3/uL (4.3-11.0)
[2021-12-02 12:14] LABS: ALBUMIN 4.4 GM/DL (3.2-4.5); POTASSIUM 3.6 MMOL/L (3.6-5.0)
[2021-12-02] MEDS ORDERED: AMIT50TA3 PO (12:14)
[2021-12-02] MEDS ORDERED: FREM225S SQ (12:14)
[2021-12-02] MEDS ORDERED: MTP100TCR PO (12:14)
[2021-12-02] MEDS ORDERED: CYCL10TA25 PO (12:14)
[2021-12-02] MEDS ORDERED: DOXA4TAB2 PO (12:14)
[2021-12-02] MEDS ORDERED: [UNRECOGNIZED DRUG - OTHER] PO (12:14)
[2021-12-02] MEDS ORDERED: METO200T48 PO (12:14)
[2021-12-02] MEDS ORDERED: APIX5TAB PO (12:14)
[2021-12-02] MEDS ORDERED: AMLO-251 PO (12:14)
[2021-12-02] MEDS ORDERED: CLN.1T PO (12:14)
[2021-12-02] MEDS ORDERED: HYDR25TA4 PO (12:14)
[2021-12-02] MEDS ORDERED: TOPI100T11 PO (12:14)
[2021-12-02 12:15] LABS: CALCIUM 9.4 MG/DL (8.5-10.1)
[2021-12-02 12:17] LABS: TOTAL PROTEIN 7.4 GM/DL (6.4-8.2)
[2021-12-02 12:18] LABS: BILIRUBIN,TOTAL 0.3 MG/DL (0.1-1.0); PROTHROMBIN TIME PATIENT 13.3 SEC (12.2-14.7)
[2021-12-02 12:20] LABS: CREATININE SERUM 1.16 MG/DL (0.60-1.30)
[2021-12-02] MEDS ORDERED: fentaNYL INJ 100 MCG/2 ML AMP ONE (16:11)
[2021-12-02] MEDS ORDERED: MIDAZOLAM 5 MG/5 ML (VERSED) VIAL ONE (16:11)
[2021-12-02] MEDS ORDERED: diphenhydrAMINE 50 MG/ML INJ (BENADRYL) ONE (16:48)
--- NOTE | 2021-12-02 17:15 | Cardiac Procedure Note-CS/ASA ---
Pre-Procedure Note Pre-Op Procedure Note H&P Reviewed The H&P was reviewed, patient examined and no changes noted. Date H&P Reviewed: December 02, 2021 Time H&P Reviewed: 16:30 Conscious Sedation Pre-Proced Time 16:30 ASA Score 3 For ASA 3 and 4: Consider anesthesia and medical clearance. Also, for patients with a history of failed moderate sedation consider anesthesia. Airway Lungs Heart ASA score ASA 1: a normal healthy patient ASA 2: a patient with a mild systemic disease (mid diabetes, controlled hypertension, obesity ASA 3: a patient with a severe systemic disease that limits activity (angina, COPD, prior Myocardial infarction) ASA 4: a patient with an incapacitating disease that is a constant threat to life (CHF, renal failure) ASA 5: a moribund patient not expected to survive 24 hrs. (ruptured aneurysm) ASA 6: a declared brain- patient whose organs are being harvested. For emergent operations, add the letter E after the classification Mallampati Classification Grade 3 Sedation Plan Analgesia, Amnesia, Plan communicated to team members, Discussed options with patient/fam, Discussed risks with patient/fam The patient is an appropriate candidate to undergo the planned procedure, sedation, and anesthesia. The patient immediately re-assessed prior to indication. JANES VALENCIA MD FACP FAC CCDS December 02, 2021 17:15
--- NOTE | 2021-12-02 17:54 | Discharge Inst-Cardiology ---
Discharge Inst-Cardiac Discharge Medications Continued Medications: Amitriptyline HCl (Amitriptyline HCl) 50 Mg Tablet 50 MG PO DAILY PRN, TAB Amlodipine Besylate (Amlodipine Besylate) 10 Mg Tablet 10 MG PO DAILY, TAB Apixaban (Eliquis) 5 Mg Tablet 5 MG PO BID, TAB Atorvastatin Calcium (Lipitor) 80 Mg Tablet 80 MG PO HS B Infantis/B Ani/B Tong/B Bifid (Probiotic 4X Caplet) 10 Mg-15 Mg Tablet.dr 1 EACH PO DAILY, TAB Butalbit/Acetamin/Caff/Codeine (Cvvrgn-Qwej-Ehbuxlptmsp-Codein) 1 Each Capsule 1 CAP PO UD, #20 Butorphanol Tartrate (Stadol Ns) 10 Mg/Ml Can 1 SPRAY NS nasal spray, #1 EA Clonidine HCl (Clonidine HCl) 0.1 Mg Tablet 0.1 MG PO TID PRN for BLOOD PRESSURE, TAB Cyclobenzaprine HCl (Cyclobenzaprine HCl) 10 Mg Tablet 10 MG PO TID PRN for SPASMS, TAB Doxazosin Mesylate (Doxazosin Mesylate) 4 Mg Tablet 4 MG PO UD, TAB TAKE 2 TABLETS IN AM ONE AT BEDTIME Fremanezumab-Vfrm (Ajovy) 225 Mg/1.5 Ml Syringe 225 MG SQ MONTHLY, EACH Hydrochlorothiazide (Hydrochlorothiazide) 25 Mg Tablet 25 MG PO DAILY, TAB Levothyroxine Sodium (Levothyroxine Sodium) 50 Mcg Tablet 1 TAB PO UD, #30 Lisinopril (Prinivil) 40 Mg Tablet 40 MG PO DAILY Metoprolol Succinate (Metoprolol Succinate) 100 Mg Tab.er.24h 100 MG PO HS, TAB Metoprolol Succinate (Metoprolol Succinate) 200 Mg Tab.er.24h 200 MG PO DAILY, TAB Omeprazole (Omeprazole) 40 Mg Capsule.dr 1 CAP PO UD, #30 Ondansetron (Zofran Odt) 4 Mg Tab.rapdis 4-8 MG PO Q4H for Nausea/Vomiting, #15 TAB Topiramate (Topiramate) 100 Mg Tablet 100 MG PO BID, TAB Travoprost (Travatan 0.004%) 2.5 Ml Drops 0 OU HS 1 DROP Patient Instructions Patient Instructions: Hold apixaban tonight and in am; resume tomorrow pm JANES VALENCIA MD FACP FAC CCDS December 02, 2021 17:53
--- NOTE | 2021-12-02 17:55 | Discharge Inst-Post CATH ---
Discharge Inst-CATH/EP Post Cardiac Cath/EP D/C Inst Follow Up/Plan Wound inspection at Dr Calero's on 12/05/21 F/u with Dr Calero in 2 weeks ACTIVITY * Go Home directly and rest. * Limit activity of the leg (or wrist if it was used) for 7 days including aerobics, swimming, jogging, bicycling, etc. * Restrict stair-climbing for 7 days if possible, if not, climb up with your non-cath leg, then bring together on the same step. * Avoid lifting, pushing, pulling or excessive movement of the affected extremity for 7 days. * Customary sexual activity may be resumed after 2 days-use caution not to use a position that strains or causes pain to the affected extremity. * No driving for 24 hours. * NO SMOKING. * Avoid straining for bowel movements for 7 days. * Gentle walking on level ground is allowed. * Returning to work will depend on the type of procedure and the results. Your doctor will discuss this with you. CALL YOUR DOCTOR FOR ANY OF THE FOLLOWING: *If bleeding from the puncture site occurs- Apply gentle pressure to site with clean cloth and call your doctor or EMS. * If a knot or lump forms under the skin, increases in size, or causes pain. * If bruising appears to be worsening or moving further down your leg instead of disappearing. * Temperature above 101 F. CARE OF YOUR GROIN INCISION; * Bruising or purple discoloration of the skin near the puncture site is common. * You may shower only, no bathtub bathing for 5 days. Be careful to avoid slipp ing as your leg may feel stiff. * If a closure device was used on your femoral artery, please see the attached guide regarding care of the device and your leg. * Leave dressing on FOR 24 hours. CARE OF YOUR WRIST INCISION; * Bruising or purple discoloration of the skin near the puncture site is common. * You may shower. * DO NOT submerge wrist. * Leave dressing on FOR 24 hours. JANES CALERO MD FACP FAC CCDS December 02, 2021 17:55
[2021-12-02 18:00] VITALS: BP 116/73
[2021-12-02] MEDS ORDERED: PATIENT MAY USE OWN MEDS, ALL PO SCH (18:00)
[2021-12-02 18:30] VITALS: BP 116/76
[2021-12-02 20:00] VITALS: BP 114/74
--- NOTE | 2021-12-02 22:07 | CARDIAC CATHETERIZATION ---
DATE OF SERVICE: 12/02/2021 CARDIAC CATHETERIZATION REPORT The patient is a 56-year-old gentleman, who has multiple coronary artery disease risk factors and who has been experiencing increasing chest discomfort and shortness of breath. Myocardial perfusion imaging carried out recently had shown evidence of ischemia. Accordingly, cardiac catheterization was carried out today after having obtained an informed consent. PROCEDURE: He was brought to the cardiac catheterization laboratory in a fasting state. Right groin was prepared and draped in the usual sterile fashion. Lidocaine 1% was used for local anesthesia. Modified Seldinger technique was used to advance a 5-Malaysian sheath in right femoral artery, 5-Malaysian JL4 catheter was used for right coronary angiography, 5-Malaysian JR4 catheter was not resulting in adequate engagement, 5-Malaysian AR mod catheter did result in engagement of the right coronary artery and allowed selective angiography of the right coronary artery. The catheter was removed. Angiography of the right femoral artery was carried out through the sheath. Mynx was used to achieve hemostasis. He tolerated the procedure well. HEMODYNAMICS: Left ventricular end-diastolic pressure following coronary angiography was 16 mmHg. There is no significant pressure gradient on pullback across the aortic valve. Ascending aortic pressure was 111/69 with a mean 84 mmHg. CORONARY ANGIOGRAPHY: Left main coronary artery, left anterior descending, left circumflex do not exhibit any angiographically significant coronary artery disease. Right coronary artery is dominant and has 20% to 30% mid vessel stenosis. VENTRICULAR ANGIOGRAPHY: Left ventricular angiography was carried out in the right anterior oblique projection. Global left ventricular systolic function is well preserved. Left ventricular ejection fraction is 50% to 55%. CONCLUSIONS: 1. Mild coronary artery disease. 2. Normal global left ventricular systolic function with ejection fraction approximately 50% to 55%. 3. Elevated left ventricular end-diastolic pressure (16 mmHg). DISCUSSION AND RECOMMENDATIONS: Based on results of the study, it appears appropriate to continue a conservative approach. Risk factor modification has been reviewed. Continuing outpatient followup is advised. Job ID: [id number] DocumentID: [id number] Dictated Date: 12/02/2021 17:14:21 Software Design Manager Date: 12/02/2021 22:06:24 Dictated By: JANES VALENCIA MD, MA, FACP, FACC,
--- NOTE | 2021-12-03 04:38 | OPERATIVE REPORT ---
DATE OF SERVICE: 12/02/2021 PREOPERATIVE DIAGNOSES: Palpitations, implantable loop recorder at end of life. POSTOPERATIVE DIAGNOSES: Palpitations, old implantable loop recorder at end of life, was removed and a new one implanted. INDICATIONS: The patient is a 56-year-old gentleman, who suffers from palpitations that are infrequent. He has an implantable loop recorder in place that has reached end of life. Informed consent was obtained for extraction and implantation of a new one. DESCRIPTION OF PROCEDURE: [facility] At the left prepectoral area, site of previous device implantation, was prepared and draped in the usual sterile fashion. Lidocaine 1% was used for local anesthesia. A small incision was made at the medial end of the device and the device was removed from the subcutaneous pocket and a new device placed in the subcutaneous pocket to replace the old one. The new device is a [employer]tr[employer] LINQ II with serial #[id number]. Job ID: [id number] DocumentID: [id number] Dictated Date: 12/02/2021 17:48:03 Hearing Specialist Date: 12/03/2021 04:37:59 Dictated By: AJNES VALENCIA MD, MA, FACP, FACC,
== END 2021-12-02 21:06 | disposition home or self-care (01) ==
LOC: CATH 11:02 → ICU 18:15 → CATH 21:06
PROVIDERS: ATTEND Internal Medicine Cardiovascular Disease
DX: I48.0 Paroxysmal atrial fibrillation (principal); I65.23 Occlusion and stenosis of bilateral carotid arteries; I11.0 Hypertensive heart disease with heart failure; I50.30 Unspecified diastolic (congestive) heart failure; I25.10 Atherosclerotic heart disease of native coronary artery without angina pectoris; G47.33 Obstructive sleep apnea (adult) (pediatric)
CPT/HCPCS: 33285; 33286; 80053; 80061; 85027; 85610; 85730; 87081; 93005; 93458; C1760; C1894; 36415